=== PATIENT | female | born 1950 | race Caucasian/White ===

== ENCOUNTER → 2017-02-21 | Outpatient (CLI) | payer BC ==
[~2017-02-21] MED LIST: ALBUAER2 INH; ASTN NAE; BUPR100T4 PO; FLNIN/ NAE; FLUT50SP14 NAE; FLVHFA110 PO; HYDR-5688 PO; TYLENOL COLD PO; VNTHFA/IN PO; [UNRECOGNIZED DRUG - OTHER] PO; [UNRECOGNIZED DRUG - OTHER] PO
--- NOTE | 2017-02-21 15:47 | DIAGNOSTIC IMAGING REPORT ---
CHEST 2 VIEWS ROUTINE CLINICAL HISTORY: J45.909 [id number] COMPARISON STUDY: 05/19/2015 FINDINGS: The cardiac and mediastinal contours are normal. There is no evidence of focal pulmonary consolidation. There is no evidence of failure. No pleural effusions are visualized.[ Linear opacities at the left lung base are felt to represent subsegmental atelectasis/scar IMPRESSION: No active disease in the chest. Electronically signed by: Braulio Dowling M.D. 02/21/2017 3:45 PM Dictated Date/Time: 02/21/2017 3:45 PM
== END | disposition home or self-care (01) ==
LOC: C.RAD1850 15:14
PROVIDERS: ATTEND Physician Assistant
DX: J40 Bronchitis, not specified as acute or chronic (principal)

== ENCOUNTER 2017-03-30 03:04 | Emergency (ER) | payer BC ==
[~2017-03-30] VITALS: Ht 167.6 cm; Wt 85.6 kg
[~2017-03-30 03:04] MED LIST changes: -ASTN NAE; -FLNIN/ NAE; -FLVHFA110 PO; -HYDR-5688 PO; -VNTHFA/IN PO
[2017-03-30 03:09] VITALS: Ht 167.6 cm; Wt 85.6 kg
[2017-03-30] MEDS ORDERED: ONDANSETRON INJ 2 MG/ML 2 ML VIAL IV STA (03:22)
[2017-03-30] MEDS ORDERED: FENTANYL CITRATE INJ 50 MCG/1 ML 2 ML VIAL IV STA (03:22)
[2017-03-30] MEDS ORDERED: SODIUM CHLORIDE 0.9% 1000ML 1,000 ML IV STA (03:22)
[2017-03-30] MEDS ORDERED: FLNIN/ NAE (03:41)
[2017-03-30] MEDS ORDERED: ASTN NAE (03:41)
[2017-03-30] MEDS ORDERED: VNTHFA/IN PO (03:41)
[2017-03-30] MEDS ORDERED: FLVHFA110 PO (03:41)
[2017-03-30 03:43] LABS: BASO % 0.2 %; BASO ABS # 0.02 K/uL (0-0.2); COMPLETE YES; EOS % 0.5 %; HEMATOCRIT 40.1 % (37-47); IG% 0.2 %; LYMPH ABS # 1.78 K/uL (1.2-3.4); MEAN CELL VOLUME 90.7 fL (80-100); MEAN CORPUSCULAR HEMOGLOBIN 32.8 pg (25-34); MEAN CORPUSCULAR HGB CONC 36.2 g/dl (32-36); MEAN PLATELET VOLUME 9.7 fL (7.4-10.4); MONO % 5.9 %; NEUT % 76.2 %; PLATELET COUNT 275 K/uL (130-400); RED BLOOD COUNT 4.42 M/uL (4.2-5.4); WHITE BLOOD COUNT 10.45 K/uL (4.8-10.8)
[2017-03-30 03:44] LABS: URINE APPEARANCE CLEAR (CLEAR); URINE BILIRUBIN NEG (NEG); URINE COLOR YELLOW; URINE NITRITE NEG (NEG); URINE SPECIFIC GRAVITY 1.028 (1.000-1.030); UROBILINOGEN NEG (NEG); ZZUR CULT IF INDIC CLEAN CATCH NO
[2017-03-30] MEDS ORDERED: KETOROLAC TROMETHAMINE 30 MG/ML VIAL IV STA (03:55)
[2017-03-30] MEDS ORDERED: FENTANYL CITRATE INJ 50 MCG/1 ML 2 ML VIAL IV ONE (04:00)
[2017-03-30 04:05] LABS: MANUAL MICROSCOPIC REQUIRED? NO; REVIEW REQ? NO
[2017-03-30 04:10] LABS: ALT/SGPT 30 U/L (12-78); AST/SGOT 19 U/L (15-37); BLOOD UREA NITROGEN 16 mg/dl (7-18); BUN/CREATININE RATIO 18.6 (10-20); CALCIUM 9.6 mg/dl (8.5-10.1); CARBON DIOXIDE 22 mmol/L (21-32); CHLORIDE 109 mmol/L (98-107); CREATININE 0.84 mg/dl (0.60-1.20); GLUCOSE 115 mg/dl (70-99); POTASSIUM 3.9 mmol/L (3.5-5.1); SODIUM 138 mmol/L (136-145)
[2017-03-30 04:13] LABS: ALKALINE PHOSPHATASE 72 U/L (45-117)
[2017-03-30 04:45] VITALS: BP 125/71; PULSE 74; O2SAT 94
[2017-03-30] MEDS ORDERED: HYDR-5688 PO (05:04)
--- NOTE | 2017-03-30 05:04 | EMERGENCY ROOM VISIT NOTE ---
History Report prepared by Marya: Ion Bryan Under the Supervision of: Dr. Chuck Calloway D.O. First contact with patient: 03:12 Chief Complaint: PAIN (GENERALIZED) Stated Complaint: ABDOMINAL PAIN, BACK PAIN, HIP PAIN History of Present Illness The patient is a 66 year old female who presents to the Emergency Room with complaints of persistent RLQ abdominal pain beginning a few hours ago. She was seen at an urgent-care center earlier today for similar symptoms. She notes that she has a history of arthritis. The patient also notes that she recently returned from a trip to [place]. She also complains of right hip pain. She denies any urinary symptoms, fevers, or diarrhea. The patient has a history of a gallbladder attack occurring about 4 years ago. Source of History: patient Onset: A few hours ago Position: abdomen (RLQ) Timing: other (persistent) Associated Symptoms: No fevers, No diarrhea, No urinary symptoms Note: The patient also complains of right hip pain Review of Systems See HPI for pertinent positives and negatives. A total of ten systems were reviewed and were otherwise negative. Past Medical & Surgical Medical Problems: (1) Arthritis (2) Gallbladder attack (3) GERD (gastroesophageal reflux disease) Family History No pertinent family history stated. Social History Smoking Status: Never Smoker Alcohol Use: occasionally Current/Historical Medications Scheduled PRN Albuterol Hfa (Ventolin Hfa), 2 PUFFS PO QID PRN for SOB/Wheezing Azelastine Hcl (Astelin Nasal [place]), 1 SPRAY ADDY UD PRN for SOB/Wheezing Fluticasone Propionate (Flovent Hfa), 2 PUFFS PO BID PRN for SOB/Wheezing Fluticasone Propionate (Fluticasone Propionate), 2 SPRY ADDY DAILY PRN for ALLERGIES Allergies Coded Allergies: Iodinated Contrast Media (Verified Allergy, Mild, CAUSED ITCHINESS ON [id number] CT ADMISSION, 03/30/17) 07/21/10: PT GOT ITCHY ON LEGS AND ABDOMEN AFTER THE ADMINISTRATION OF CONTRAST MEDIA IN CT Hydromorphone (Verified Adverse Reaction, Severe, hypothermia, vomiting, ) Physical Exam Vital Signs Date Time Temp Pulse Resp B/P (MAP) Pulse Ox O2 Delivery O2 Flow Rate FiO2 03/30/17 04:45 74 16 125/71 94 Room Air 03/30/17 03:43 78 03/30/17 03:09 86 22 199/106 98 Room Air Physical Exam GENERAL: Awake, alert, well-appearing, in no distress HENT: Normocephalic, atraumatic. Oropharynx unremarkable. EYES: Normal conjunctiva. Sclera non-icteric. NECK: Supple. No nuchal rigidity. FROM. No JVD. RESPIRATORY: Clear to auscultation. CARDIAC: Regular rate, normal rhythm. Extremities warm and well perfused. Pulses equal. ABDOMEN: Soft, non-distended. RLQ tenderness to palpation. No rebound or guarding. No masses. RECTAL: Deferred. MUSCULOSKELETAL: Chest examination reveals no tenderness. The back is symmetrical on inspection without obvious abnormality. There is no CVA tenderness to palpation. No joint edema. LOWER EXTREMITIES: Calves are equal size bilaterally and non-tender. No edema. No discoloration. NEURO: Normal sensorium. No sensory or motor deficits noted. SKIN: No rash or jaundice noted. Medical Decision & Procedures ER Provider Diagnostic Interpretation: CT results per statrad and my review. CT ABDOMEN & PELVIS: Compared to CT abdomen and pelvis 02/27/2012. No CT evidence of acute cholecystitis or acute pancreatitis. No urinary obstruction. No bowel obstruction. Unremarkable appendix. Colonic diverticulosis without CT evidence of acute diverticulitis. The ovaries are not abnormally enlarged. No free fluid. No free air. Laboratory Results 03/30/17 03:30 Red Blood Count 4.42, Mean Corpuscular Volume 90.7, Mean Corpuscular Hemoglobin 32.8, Mean Corpuscular Hemoglobin Concent 36.2, Mean Platelet Volume 9.7, Neutrophils (%) (Auto) 76.2, Lymphocytes (%) (Auto) 17.0, Monocytes (%) (Auto) 5.9, Eosinophils (%) (Auto) 0.5, Basophils (%) (Auto) 0.2, Neutrophils # (Auto) 7.96, Lymphocytes # (Auto) 1.78, Monocytes # (Auto) 0.62, Eosinophils # (Auto) 0.05, Basophils # (Auto) 0.02 03/30/17 03:30 Test 03/30/17 03:30 White Blood Count 10.45 K/uL (4.8-10.8) Red Blood Count 4.42 M/uL (4.2-5.4) Hemoglobin 14.5 g/dL (12.0-16.0) Hematocrit 40.1 % (37-47) Mean Corpuscular Volume 90.7 fL (80-100) Mean Corpuscular Hemoglobin 32.8 pg (25-34) Mean Corpuscular Hemoglobin Concent 36.2 g/dl (32-36) Platelet Count 275 K/uL (130-400) Mean Platelet Volume 9.7 fL (7.4-10.4) Neutrophils (%) (Auto) 76.2 % Lymphocytes (%) (Auto) 17.0 % Monocytes (%) (Auto) 5.9 % Eosinophils (%) (Auto) 0.5 % Basophils (%) (Auto) 0.2 % Neutrophils # (Auto) 7.96 K/uL (1.4-6.5) Lymphocytes # (Auto) 1.78 K/uL (1.2-3.4) Monocytes # (Auto) 0.62 K/uL (0.11-0.59) Eosinophils # (Auto) 0.05 K/uL (0-0.5) Basophils # (Auto) 0.02 K/uL (0-0.2) RDW Standard Deviation 41.6 fL (36.4-46.3) RDW Coefficient of Variation 12.4 % (11.5-14.5) Immature Granulocyte % (Auto) 0.2 % Immature Granulocyte # (Auto) 0.02 K/uL (0.00-0.02) Urine Color YELLOW Urine Appearance CLEAR (CLEAR) Urine pH 5.0 (4.5-7.5) Urine Specific [place] 1.028 (1.000-1.030) Urine Protein NEG (NEG) Urine Glucose (UA) NEG (NEG) Urine Ketones 1+ (NEG) Urine Occult Blood NEG (NEG) Urine Nitrite NEG (NEG) Urine Bilirubin NEG (NEG) Urine Urobilinogen NEG (NEG) Urine Leukocyte Esterase NEG (NEG) Anion Gap 7.0 mmol/L (3-11) Est Creatinine Clear Calc Drug Dose 73.6 ml/min Estimated GFR () 84.5 Estimated GFR (Non- 72.9 BUN/Creatinine Ratio 18.6 (10-20) Calcium Level 9.6 mg/dl (8.5-10.1) Total Bilirubin 0.5 mg/dl (0.2-1) Direct Bilirubin < 0.1 mg/dl (0-0.2) Aspartate Amino Transf (AST/SGOT) 19 U/L (15-37) Alanine Aminotransferase (ALT/SGPT) 30 U/L (12-78) Alkaline Phosphatase 72 U/L (45-117) Total Protein 7.2 gm/dl (6.4-8.2) Albumin 4.3 gm/dl (3.4-5.0) Laboratory results reviewed by me Medications Administered Medications (Trade) Dose Ordered Sig/Michael Route Start Time Stop Time Status Last Admin Dose Admin Fentanyl Citrate (Fentanyl Inj) 50 mcg NOW STAT IV 03/30/17 03:22 03/30/17 03:24 DC 03/30/17 03:35 50 MCG Sodium Chloride 1,000 ml @ 999 mls/hr Q1H1M STAT IV 03/30/17 03:22 03/30/17 04:22 DC 03/30/17 03:36 999 MLS/HR Ondansetron HCl (Zofran Inj) 4 mg NOW STAT IV 03/30/17 03:22 03/30/17 03:24 DC 03/30/17 03:35 4 MG Ketorolac Tromethamine (Toradol Inj) 30 mg NOW STAT IV 03/30/17 03:55 03/30/17 03:57 DC 03/30/17 04:19 30 MG Fentanyl Citrate (Fentanyl Inj) 50 mcg NOW ONCE IV 03/30/17 04:00 03/30/17 04:01 DC 03/30/17 04:20 50 MCG ED Course 0317: The patient was evaluated in room B3B. A complete history and physical exam was performed. 0322: Ordered Zofran Inj 4 mg IV, Sodium Chloride 1000 ml @ 999 mls/hr IV, Fentanyl Inj 50 mcg IV. 0355: Ordered Toradol Inj 30 mg IV. 0400: Ordered Fentanyl Inj 50 mcg IV. 0500: I reevaluated the patient. Discussed results and discharge instructions: she verbalized understanding and agreement. The patient is ready for discharge. Medical Decision Differential diagnosis: Etiologies such as appendicitis, diverticulitis, PUD, biliary pathology, UTI, pancreatitis, obstruction, mesenteric ischemia, aortic pathology, infections, inflammatory bowel disease, renal colic, as well as others were entertained. Patient received IV pain medicine feels much improved. Patient may have referred pain from her back is no evidence of appendicitis or an ovarian etiology or kidney stone at this time. I discussed the evaluation with the patient and the patient's at 5 AM. Patient is to return for increased pain anorexia fever or for any concerns. I will add [place] to her pain regimen for the next few days. Impression Primary Impression: RLQ abdominal pain Scribe Attestation The scribe's documentation has been prepared under my direction and personally reviewed by me in its entirety. I confirm that the note above accurately reflects all work, treatment, procedures, and medical decision making performed by me. Departure Information Dispostion Home / Self-Care Prescriptions Hydrocodone/Acetaminophen 5MG/325MG ([place] 5MG/325MG) Tab 1 TABLET PO Q6 Y for Pain for 3 Days, #10 TAB Prov: Chuck Calloway, DO 03/30/17 Referrals Priyanka Mccormick M.D. (PCP) Patient Instructions Abdominal Pain - [facility], [facility]
--- NOTE | 2017-03-30 07:24 | DIAGNOSTIC IMAGING REPORT ---
CT OF THE ABDOMEN AND PELVIS WITHOUT CONTRAST CLINICAL HISTORY: Right lower quadrant pain. COMPARISON STUDY: CT of the abdomen and pelvis February 27, 2012. TECHNIQUE: Axial images of the abdomen and pelvis were obtained without IV contrast. Images were reviewed in the axial, sagittal, and coronal planes. A dose lowering technique was utilized adhering to the principles of ALARA. FINDINGS: Incidental note is made of calcified granulomas within the liver and spleen. Unenhanced images of the liver, spleen, adrenal glands and pancreas are unremarkable with the exception of an 8 mm left adrenal low-attenuation nodule which is unchanged since exam of February 27, 2012. This is benign and reflects an adenoma.. There is no hydronephrosis. No renal, ureteral or bladder calculi are identified. Evaluation of the abdomen and pelvis is suboptimal on this unenhanced exam. There is no evidence for a bowel obstruction. The appendix is normal. There are scattered colonic diverticula without evidence for acute diverticulitis. The ovaries are not enlarged. There are no suspicious skeletal lesions. There are degenerative changes at the L5-S1 level. IMPRESSION: 1. No acute process within the abdomen or pelvis. Normal appendix. 2. No urinary calculi or hydronephrosis. Electronically signed by: Mark Anthony Prather M.D. 03/30/2017 7:23 AM Dictated Date/Time: 03/30/2017 7:17 AM
== END 2017-03-30 05:14 | disposition home or self-care (01) ==
LOC: C.EDB 03:06
DX: R10.31 Right lower quadrant pain (principal); M19.90 Unspecified osteoarthritis, unspecified site; M25.551 Pain in right hip; K21.9 Gastro-esophageal reflux disease without esophagitis

== ENCOUNTER → 2018-04-01 | Outpatient (CLI) | payer BC ==
[~2018-04-01] MED LIST changes: -ALBUAER2 INH; +ASTN NAE; -BUPR100T4 PO; +FLNIN/ NAE; -FLUT50SP14 NAE; +FLVHFA110 PO; -TYLENOL COLD PO; +VNTHFA/IN PO; -[UNRECOGNIZED DRUG - OTHER] PO; -[UNRECOGNIZED DRUG - OTHER] PO
--- NOTE | 2018-04-01 15:34 | DIAGNOSTIC IMAGING REPORT ---
R ANKLE 2 VIEWS CLINICAL HISTORY: S89.90XA pain. Edema. COMPARISON: None. DISCUSSION: The bones and joint spaces appear intact. There is no evidence of fracture, dislocation or bony disease. There is no evidence for soft tissue swelling. IMPRESSION: Negative study. The above report was generated using voice recognition software. It may contain grammatical, syntax or spelling errors. Electronically signed by: Ravinder Garcia M.D. 04/01/2018 3:33 PM Dictated Date/Time: 04/01/2018 3:33 PM
--- NOTE | 2018-04-01 15:37 | DIAGNOSTIC IMAGING REPORT ---
R KNEE 3 VIEWS CLINICAL HISTORY: S89.90XA trauma. Pain. COMPARISON: None. DISCUSSION: The bones and joint spaces appear intact. There is no evidence of fracture, dislocation or bony disease. There is no evidence for soft tissue swelling. IMPRESSION: Negative study. The above report was generated using voice recognition software. It may contain grammatical, syntax or spelling errors. Electronically signed by: Ravinder Garcia M.D. 04/01/2018 3:35 PM Dictated Date/Time: 04/01/2018 3:33 PM
== END | disposition home or self-care (01) ==
LOC: C.RAD1850 15:13
PROVIDERS: ATTEND Family Medicine
DX: S89.91XA Unspecified injury of right lower leg, initial encounter (principal); S99.911A Unspecified injury of right ankle, initial encounter; X58.XXXA Exposure to other specified factors, initial encounter